=== PATIENT | male | born 1995 | race Caucasian/White ===

== ENCOUNTER 2019-01-13 09:52 | Emergency (ER) | payer BC ==
--- NOTE | 2019-01-13 10:14 | ER Document Report ---
ED Foreign Body - General Chief Complaint: Foreign Body Stated Complaint: FISHING HOOK IN RIGHT FOURTH DIGIT Time Seen by Provider: 01/13/19 10:12 Mode of Arrival: Ambulatory Information source: Patient TRAVEL OUTSIDE OF THE [place] IN LAST 30 DAYS: No - Related Data Allergies/Adverse Reactions: No Known Allergies Allergy (Unverified 01/13/19 09:59) Physical Exam - Vital signs Vitals: Temp Pulse Resp BP Pulse Ox 98.8 F 73 16 131/89 H 99 01/13/19 09:57 01/13/19 09:57 01/13/19 09:57 01/13/19 09:57 01/13/19 09:57 Course - Re-evaluation Re-evalutation: 01/13/19 10:13 tetanus passive ROM with resistance kavanel's sign - Vital Signs Vital signs: Temp Pulse Resp BP Pulse Ox 98.8 F 73 16 131/89 H 99 01/13/19 09:57 01/13/19 09:57 01/13/19 09:57 01/13/19 09:57 01/13/19 09:57
[2019-01-13] MEDS ORDERED: LIDOCAINE 1% INJ (10 MG/ML) 10 ML MDV INJ ONE (10:45)
[2019-01-13] MEDS ORDERED: DIPH/PERTUSS(ACELL)/TETANUS VAC/PF 0.5 ML SYR (>=10YO) IM ONE (10:45)
--- NOTE | 2019-01-13 10:51 | ER Document Report ---
ED Medical Screen (RME) - General Chief Complaint: Foreign Body Stated Complaint: FISHING HOOK IN RIGHT FOURTH DIGIT Time Seen by Provider: 01/13/19 10:12 TRAVEL OUTSIDE OF THE [place] IN LAST 30 DAYS: No - HPI Notes: 01/13/19 10:51 23-year-old male presents the ED for evaluation of a fishhook to his right fourth digit that occurred approximately 2 hours ago while he was trying to get the hook out of the fish's mouth. His last tetanus was over 10 years ago. Reports pain is 6 out of 10, throbbing achy. Has not tried anything [id number]. Denies any numbness or tingling in his hands. Denies any fevers or chills. exam: fishing hook to right distal phalanx on lateral aspect, radial pulses + 2 BUE equally. Negative kanavels sign. No vascular compromise. Motor and sensory function of ulnar, radial, medial nerves intact bilaterally and equally. strength 5/5 in BUE equally. I have greeted and performed a rapid initial assessment of this patient. A comprehensive ED assessment and evaluation of the patient, analysis of test results and completion of medical decision making process will be conducted by an additional ED providers. - Related Data Allergies/Adverse Reactions: No Known Allergies Allergy (Unverified 01/13/19 09:59) Past Medical History - Social History Frequency of alcohol use: None Drug Abuse: None Renal/ Medical History: Denies: Hx Peritoneal Dialysis Physical Exam - Vital signs Vitals: Temp Pulse Resp BP Pulse Ox 98.8 F 73 16 131/89 H 99 01/13/19 09:57 01/13/19 09:57 01/13/19 09:57 01/13/19 09:57 01/13/19 09:57 Course - Vital Signs Vital signs: Temp Pulse Resp BP Pulse Ox 98.8 F 73 16 131/89 H 99 01/13/19 09:57 01/13/19 09:57 01/13/19 09:57 01/13/19 09:57 01/13/19 09:57
--- NOTE | 2019-01-13 11:31 | RADIOLOGY REPORT (SQ) ---
EXAM DESCRIPTION: FINGER RIGHT COMPLETED DATE/TIME: 01/13/2019 11:06 am REASON FOR STUDY: 4th finger w/ fish hook, r/o fx prior to removal COMPARISON: None. NUMBER OF VIEWS: Three views. TECHNIQUE: AP, lateral, and oblique images acquired of the right fourth finger. LIMITATIONS: None. FINDINGS: MINERALIZATION: Normal. BONES: No acute fracture or dislocation. No worrisome bone lesions. SOFT TISSUES: Metal fish hook overlying the ulnar margin of the distal tuft. OTHER: No other significant finding. IMPRESSION: No fracture. COMMENT: SITE OF TRAUMA/COMPLAINT MARKED/STAMP COMPLETED: YES. TECHNICAL DOCUMENTATION: JOB ID: [id number] [employer]- All Rights Reserved Reading location - IP/workstation name: [email or web address]
--- NOTE | 2019-01-13 12:00 | ER Document Report ---
HPI - HPI Time Seen by Provider: 01/13/19 10:12 Pain Level: 3 Context: Patient is a 23-year-old male who presents to the emergency department with a fishhook stuck in the distal end of his right fourth finger. The patient is right-handed. He was fishing around 8:30 this morning and got stuck on the lateral portion of his finger. He is able to move it, but the hook is stuck in there. Denies any medical problems. He does not take any medications. Received his tetanus vaccine in triage. - ROS Systems Reviewed and Negative: Yes All other systems reviewed and negative - CONSTITUTIONAL Constitutional: DENIES: Fever, Chills - NEURO Neurology: DENIES: Headache, Weakness - GASTROINTESTINAL Gastrointestinal: DENIES: Nausea, Patient vomiting - MUSCULOSKELETAL Musculoskeletal: REPORTS: Extremity pain - right distal 4th digit. DENIES: Swelling - DERM Skin Color: Normal Skin Problems: Puncture Wound - distal 4th digit with fish hook in place Past Medical History - Social History Smoking Status: Never Smoker Frequency of alcohol use: None Drug Abuse: None Family History: Reviewed & Not Pertinent Patient has suicidal ideation: No Patient has homicidal ideation: No Renal/ Medical History: Denies: Hx Peritoneal Dialysis Vertical Provider Document - INFECTION CONTROL TRAVEL OUTSIDE OF THE [place] IN LAST 30 DAYS: No Course - Re-evaluation Re-evalutation: X-ray shows no fracture at this time. Does not appear that the hook is close to the bone. I was able to visualize the blessing on the hook. He has good flexion extension of his fourth digit on the right hand. Digital block was placed to the patient right fourth digit. The fishhook was pulled out with a pair of Aimee clamps. The patient tolerated procedure well. Patient said he was fishing in fresh water, but I am unsure of whether or not the patient has had been in salt water before. Therefore, I will place the patient on doxycycline to cover vibrio. He received his tetanus vaccination in triage. No vascular compromise noted. Patient will follow up with primary care provider as needed. Follow-up precautions were given. Verbal discharge instructions were given to the patient. They verbalized understanding. They are stable for discharge. - Vital Signs Vital signs: Temp Pulse Resp BP Pulse Ox 98.8 F 73 16 131/89 H 99 01/13/19 09:57 01/13/19 09:57 01/13/19 09:57 01/13/19 09:57 01/13/19 09:57 Discharge - Discharge Clinical Impression: Gravity injury to finger Qualifiers: Encounter type: initial encounter Laterality: right Qualified Code(s): S69.91XA - Unspecified injury of right wrist, hand and finger(s), initial encounter Condition: Stable Disposition: HOME, SELF-CARE Instructions: Prophylactic Antibiotic (OM), Tetanus Immunization Given ([facility]) Additional Instructions: You were seen today in the emergency department for a fishhook stuck in your right ring finger. There is no injury to the bone. The hook was removed here in the emergency department. You are being started on antibiotics and you received your tetanus vaccine here in the emergency department. Even if you feel better, continue to take your antibiotics. Prescriptions: Doxycycline Hyclate 100 mg PO BID #14 tablet.
[2019-01-13] MEDS ORDERED: ACETAMINOPHEN 325 MG TABLET PO ONE (12:05)
[2019-01-13] MEDS ORDERED: IBUPROFEN 600 MG TABLET PO ONE (12:05)
[2019-01-13 12:22] VITALS: BP 123/88
== END 2019-01-13 12:20 | disposition home or self-care (01) ==
LOC: ER 09:52
DX: S61.244A Puncture wound with foreign body of right ring finger without damage to nail, initial encounter (principal); X58.XXXA Exposure to other specified factors, initial encounter; Z23 Encounter for immunization
CPT/HCPCS: 90471; 90715; 99283